=== PATIENT | female | born 1940 | race Caucasian/White ===

== ENCOUNTER → 2022-04-13 11:04 | Outpatient (CLI) | payer MEDICARE, SELFPAY ==
--- NOTE | 2022-04-13 11:07 | DI.RAD.S_ITS ---
PROCEDURE: XR LUMBAR SPINE 2-3V INDICATIONS: Low back pain TECHNIQUE: 3 views of the lumbar spine were acquired. COMPARISON: None. FINDINGS: Bones: 5 [id number] vertebrae are present. There is normal bony alignment. No vertebral body compression fractures. No suspicious bony lesions. Multilevel disc space narrowing and degenerative endplate changes are seen. There is multilevel facet hypertrophy, predominantly from L3-4 through L5-S1. Soft tissues: Overlying bowel gas pattern is normal. No suspicious soft tissue calcifications. Aortic atherosclerotic calcifications. IMPRESSION: [id number] spondylosis. No acute osseous abnormality. If the symptoms persist, consider cross sectional imaging such as MRI or CT for further assessment. Dictated by: Luke Blandon M.D. on 04/13/2022 at 10:42 Approved by: Luke Blandon M.D. on 04/13/2022 at 10:43
== END ==
PROVIDERS: Referring Provider Nurse Practitioner Family; Visit Provider Nurse Practitioner Family
DX: M54.50 Low back pain, unspecified (principal); M47.816 Spondylosis without myelopathy or radiculopathy, lumbar region
CPT/HCPCS: 72100

== ENCOUNTER → 2022-04-30 12:30 | Outpatient (CLI) | payer MEDICARE, SELFPAY ==
--- NOTE | 2022-04-30 | DI.MG.S_ITS ---
BILATERAL DIGITAL SCREENING MAMMOGRAM 3D/2D WITH CAD: 04/30/2022 CLINICAL: Routine screening. Chelsey by default. No prior exams were available for comparison. Both breasts are heterogeneously dense, which may obscure small masses (category c / 51-75% glandular tissue). Current study was also evaluated with a Computer Aided Detection (CAD) system. No significant masses, calcifications, or other findings are seen in either breast. IMPRESSION: NEGATIVE There is no mammographic evidence of malignancy. A 1 year screening mammogram is recommended. Based on the Tyrer Cuzick model (a risk assessment model) the patient's lifetime risk is 2.5% and her 10 year risk is 0.0%. According to the ACR, ACS, and NCCN guidelines, an annual breast MRI exam along with mammogram is recommended if the patient's lifetime risk is 20% or greater. This exam was interpreted at Station ID: [id number]. NOTE: For mammograms, a report in lay terms will be sent to the patient. Approximately 15% of breast malignancies will not be visualized mammographically. In the management of a palpable breast mass, a negative mammogram must not discourage biopsy of a clinically suspicious lesion. Electronically Signed By: Terrell sánchez/amy:04/30/2022 14:31:20 letter sent: Normal Exam ACR BI-RADS Category 1: Negative 3341F
== END ==
PROVIDERS: PCP Family Medicine; Referring Provider Family Medicine; Visit Provider Family Medicine
DX: Z12.31 Encounter for screening mammogram for malignant neoplasm of breast (principal)
CPT/HCPCS: 77063; 77067

== ENCOUNTER 2022-05-29 10:43 | Outpatient (RCR) | payer MEDICARE, SELFPAY ==
--- NOTE | 2022-05-29 12:02 | PT.OIE ---
Current Diagnoses Sciatica, left side (05/29/22) Visit Care Team Role Provider Type Other Providers Specialty: Address: Phone: Fax: Email: Layo Vargas MD Family Provider Non-Staff Primary Care Provider Specialty: Family Practice Address: [facility], [address] [place] [address], [address] Email: JAQUI Arellano Attending Provider Physician Referring Provider Specialty: [facility] Address: [address] [facility], [facility] [place], [address] Phone: Fax: Email: [email or web address] Physical Therapy Initial Evaluation PT-OP-A Visit Information Start: 05/29/22 11:50 Freq: Status: Active Protocol: Document 05/29/22 11:15 DCW (Rec: 05/29/22 11:52 DC [id number]) Out-Patient Physical Therapy Visit Information Visit Information Visit Type Initial Evaluation Visit Start Time 11:15 Visit Stop Time 11:45 Total Visit Minutes 30 Visit Number 1 Number of STAFF RESEARCH SCIENTIST Visits 0 Evaluation Information Evaluation Date 05/29/22 PT-OP-B Current Condition Start: 05/29/22 11:50 Freq: Status: Active Protocol: Document 05/29/22 11:15 DCW (Rec: 05/29/22 11:58 DCW [id number]) Current Condition History of Current Condition Onset Date ~2 month history Current Complaints None History of Current Condition Pt is a 81 year old female presenting two months s/p lumbar strain. Pt notes she feels pretty much normal now , but admits she struggled to walk for about a month after her injury due to sciatic pain . Reports she had been out pulling weeds and felt something go in her back. Experienced severe low back and leg pain afterward. Was unable to get relief with anything, but did notice a gradual improvement. Today no longer really experiencing any symptoms, but interested in learning more about what may have happened and if there is anything she could do if it happens again. PT-OP-C Subjective Start: 05/29/22 11:50 Freq: Status: Active Protocol: Document 05/29/22 11:15 DCW (Rec: 05/29/22 11:52 DCW [id number]) OP-PT Subjective Patient Comments Patient Comments I thought about canceling this appointment, since I'm feeling so much better, but I figured it would be worth coming in and just talking over some things with you. Patient Reported Progress Improving OP-PT Pain Assessment Pain Assessment Grid Paper Pain Assessment Grid Completed Yes Location Left Leg Intensity 4 Scale Used Numeric (0 - 10) PT-OP-F Manual Assessment Start: 05/29/22 11:50 Freq: Status: Active Protocol: Document 05/29/22 11:15 DCW (Rec: 05/29/22 11:56 DCW [id number]) Manual Assessments Soft Tissue Assessment Soft Tissue Mobility Assessment Mild-moderate tone and tenderness to palpation /: Complaint of pain along left piriformis. No other tenderness noted along low back or hips. PT-OP-K Range of Motion Start: 05/29/22 11:50 Freq: Status: Active Protocol: Document 05/29/22 11:15 DCW (Rec: 05/29/22 11:56 DCW [id number]) Lumbar Spine Range of Motion Lumbar Spine Active Testing Position Standing Comments Pt demonstrates WNL pain-free lumbar ROM, able to bend forward and touch the floor, arch back with no difficulty. PT-OP-L Special Tests Start: 05/29/22 11:50 Freq: Status: Active Protocol: Document 05/29/22 11:15 DCW (Rec: 05/29/22 11:56 DCW [id number]) Special Tests Lumbar Spine Special Tests Vertical Spine Loading Test Results Negative Standing Flexion Test Results Negative Prone Instability Test Test Results Negative Compression Test Results Negative A-P Shearing Test Results Negative PT-OP-M Strength Start: 05/29/22 11:50 Freq: Status: Active Protocol: Document 05/29/22 11:15 DCW (Rec: 05/29/22 11:56 DCW [id number]) Hip Strength Hip Manual Muscle Testing Bilateral Flexion (L2) 4+ Good+ Abduction 4+ Good+ Adduction 4+ Good+ External Rotation 4+ Good+ Internal Rotation 4+ Good+ Knee Strength Knee Manual Muscle Testing Bilateral Flexion (S2) 4+ Good+ Extension (L3) 4+ Good+ PT-OP-Q Treatments Start: 05/29/22 11:50 Freq: Status: Active Protocol: Document 05/29/22 11:15 DCW (Rec: 05/29/22 11:56 DCW [id number]) Therapeutic Exercises Supine Exercises Piriformis Stretch Supine Exercise Name Knee to opposite shoulder, Figure-4 Side left Sidelying Exercises Clamshell Sidelying Exercise Name Clamshell Side left Resistance Lv 3 Sitting Exercises Piriformis stretch Sitting Exercise Name Seated Figure-4 Side left PT-OP-T Assessment and Plan Start: 05/29/22 11:50 Freq: Status: Active Protocol: Document 05/29/22 11:15 DCW (Rec: 05/29/22 12:02 DCW [id number]) Physical Therapy Assessment Rehab Potential Rehabilitation Potential Excellent Evaluation Complexity Number of Personal Factors/Comorbidities 0 Number of Body Systems Impaired 1-2 Clinical Presentation at Evaluation Stable Assessment Summary Assessment Pt evaluation largely unremarkable, lumbar ROM, special testing, and LE strength all very good for pt' s age, no concerns regarding anything. Did have some lingering tone/tenderness along left piriformis following lumbar straining two months ago. Therapist and patient both felt that pt would probably not benefit from any further skilled therapy, but pt was very receptive to further information about trying to stretch out and strengthen piriformis to improve current lingering tightness, as well as potentially how to help improve speed of improvement if this type of thing happen again. Pt tolerated education very well, was given HEP handout, and felt she did not require any further instruction. Pt will be discharged from skilled therapy at this time, and will require a new referral in order to return to PT if needed. Physical Therapy Plan Frequency and Duration Frequency of Treatment 1x/Week Plan of Care Start Date 05/29/22 Plan of Care End Date 05/30/22 Discharge Physical Therapy Discharge Reasons No Longer Attending PT Next Visit Focus/Plan Next Note Type Discharge Summary
--- NOTE | 2022-05-29 12:03 | PT.OPPOC ---
Physical, Occupational & Speech Therapy At Current Diagnoses Sciatica, left side (05/29/22) Visit Care Team Role Provider Type Other Providers Specialty: Address: Phone: Fax: Email: Layo Vargas MD Family Provider Non-Staff Primary Care Provider Specialty: Family Practice Address: [address], [address] Email: JAQUI Arellano Attending Provider Physician Referring Provider Specialty: [facility] Address: [address] [facility], [address], [place], [address] Phone: Fax: Email: [email or web address] Plan Of Care PT-OP-T Assessment and Plan Start: 05/29/22 11:50 Freq: Status: Active Protocol: Document 05/29/22 11:15 DCW (Rec: 05/29/22 12:02 DCW [id number]) Physical Therapy Assessment Rehab Potential Rehabilitation Potential Excellent Evaluation Complexity Number of Personal Factors/Comorbidities 0 Number of Body Systems Impaired 1-2 Clinical Presentation at Evaluation Stable Assessment Summary Assessment Pt evaluation largely unremarkable, lumbar ROM, special testing, and LE strength all very good for pt' s age, no concerns regarding anything. Did have some lingering tone/tenderness along left piriformis following lumbar straining two months ago. Therapist and patient both felt that pt would probably not benefit from any further skilled therapy, but pt was very receptive to further information about trying to stretch out and strengthen piriformis to improve current lingering tightness, as well as potentially how to help improve speed of improvement if this type of thing happen again. Pt tolerated education very well, was given HEP handout, and felt she did not require any further instruction. Pt will be discharged from skilled therapy at this time, and will require a new referral in order to return to PT if needed. Physical Therapy Plan Frequency and Duration Frequency of Treatment 1x/Week Plan of Care Start Date 05/29/22 Plan of Care End Date 05/30/22 Discharge Physical Therapy Discharge Reasons No Longer Attending PT Next Visit Focus/Plan Next Note Type Discharge Summary Plan of Care Dates Plan of Care Start Date 05/29/22 Plan of Care End Date 05/30/22 Electronically Signed by: Oscar Soria, PT 05/29/22 [id number] If you are in agreement with this Plan of Care, please return a signed and dated copy. I have reviewed this Plan of Care and certify that the skilled therapy services above are required to meet the patient?s needs. Physician Signature Date Printed Name and Credentials Clinical Instructor Signature Printed Name and Credentials
== END 2022-05-30 15:27 | disposition home or self-care (01) ==
LOC: PHYS 10:43
PROVIDERS: Family Provider Family Medicine; PCP Family Medicine; Referring Provider Nurse Practitioner Family; Visit Provider Nurse Practitioner Family
DX: M54.32 Sciatica, left side (principal)
CPT/HCPCS: 97161

== ENCOUNTER → 2023-04-16 14:12 | Outpatient (CLI) | payer MEDICARE, SELFPAY ==
[2023-04-16 15:29] LABS: Add Manual Diff / Slide Review NO; Basophils Absolute Auto 100 /uL (0-100); Basophils Percent Auto 1.2 % (0-2); Eosinophils Absolute Auto 300 /uL (0-450); Eosinophils Percent Auto 4.2 % (2-4); Hematocrit 33.3 % (36-46); Hemoglobin 10.7 g/dL (12.0-16.0); Lymphocytes Absolute Auto 2900 /uL (1100-4500); Lymphocytes Percent Auto 36.1 % (25-40); Mean Corpuscular Hemoglobin 19.8 PG (26-34); Mean Corpuscular Volume 61.7 fL (80-100); Monocytes Absolute Auto 600 /uL (0-900); Monocytes Percent Auto 7.2 % (3-14); Neutrophils Absolute Auto 4200 /uL (1500-7000); Neutrophils Percent Auto 51.3 % (50-75); Platelet Count 236 X10^3/uL (150-400); Red Blood Cell Count 5.39 X10^6/uL (4.0-5.2); Red Cell Distribution Width 16.2 % (11.6-14.8); White Blood Cell Count 8.1 X10^3/uL (4.5-11.0)
[2023-04-16 15:40] LABS: Anisocytosis 1+
[2023-04-16 15:41] LABS: Ovalocytes 1+; Schistocytes 1+
[2023-04-16 15:43] LABS: Hypochromasia 1+
[2023-04-16 15:54] LABS: Alanine Aminotransferase 15 IU/L (<35); Albumin 4.2 g/dL (3.5-5.0); Albumin Globulin Ratio 1.3 (1.0-2.8); Alkaline Phosphatase 66 U/L (38-126); Aspartate Aminotransferase 23 IU/L (14-36); BUN Creatinine Ratio 24.7 (6-22); Bilirubin Total 0.3 mg/dL (0.2-1.3); Blood Urea Nitrogen 18 mg/dL (7-17); Calcium 9.6 mg/dL (8.4-10.2); Carbon Dioxide 28 mmol/L (22-32); Chloride 102 mmol/L (98-107); Estimated Glomerular Filt Rate > 60 mL/min (>60); Globulin 3.2 g/dL (1.7-4.1); Glucose 119 mg/dL (80-110); HEMOLYSIS < 15 (0-50); Iron 68 ug/dL (37-170); Potassium 3.8 mmol/L (3.4-5.1); Sodium 140 mmol/L (137-145); Total Protein 7.4 g/dL (6.3-8.2)
[2023-04-16 16:02] LABS: Percent Iron Saturation 21 % (15-50); Total Iron Binding Capacity 328 ug/dL (265-497); Transferrin 251 mg/dL (206-381)
[2023-04-16 16:21] LABS: TSH w/ Reflex to FT4 1.54 uIU/mL (0.47-4.68)
[2023-04-16 16:45] LABS: Vitamin B12 840 pg/mL (239-931)
== END ==
PROVIDERS: Family Provider Family Medicine; PCP Family Medicine; Referring Provider Family Medicine; Visit Provider Family Medicine
DX: M54.41 Lumbago with sciatica, right side (principal); G89.29 Other chronic pain; L57.0 Actinic keratosis; Z00.00 Encounter for general adult medical examination without abnormal findings
CPT/HCPCS: 36415; 80053; 82607; 83540; 83550; 84443; 85025

== ENCOUNTER → 2023-07-21 09:50 | Outpatient (CLI) | payer MEDICARE, SELFPAY ==
--- NOTE | 2023-07-21 | DI.MG.S_ITS ---
BILATERAL DIGITAL SCREENING MAMMOGRAM 3D/2D WITH CAD: 07/21/2023 CLINICAL: Routine screening. Comparison is made to exam dated: 04/30/2022 mammogram - [facility]. Both breasts are heterogeneously dense, which may obscure small masses (category c / 51-75% glandular tissue). Current study was also evaluated with a Computer Aided Detection (CAD) system. No significant masses, calcifications, or other findings are seen in either breast. There has been no significant interval change. IMPRESSION: NEGATIVE There is no mammographic evidence of malignancy. A 1 year screening mammogram is recommended. Based on the Tyrer Cuzick model (a risk assessment model) the patient's lifetime risk is 2.3% and her 10 year risk is 0.0%. According to the ACR, ACS, and NCCN guidelines, an annual breast MRI exam along with mammogram is recommended if the patient's lifetime risk is 20% or greater. This exam was interpreted at Station ID: [id number]. NOTE: For mammograms, a report in lay terms will be sent to the patient. Approximately 15% of breast malignancies will not be visualized mammographically. In the management of a palpable breast mass, a negative mammogram must not discourage biopsy of a clinically suspicious lesion. Electronically Signed By: Jayda alves/amy:07/21/2023 15:22:32 letter sent: Normal Exam ACR BI-RADS Category 1: Negative 3341F
== END ==
PROVIDERS: Family Provider Family Medicine; PCP Family Medicine; Referring Provider Family Medicine; Visit Provider Family Medicine
DX: Z12.31 Encounter for screening mammogram for malignant neoplasm of breast (principal)
CPT/HCPCS: 77063; 77067

== ENCOUNTER → 2024-05-04 15:46 | Outpatient (CLI) | payer MEDICARE, SELFPAY ==
--- NOTE | 2024-05-04 15:47 | DI.RAD.S_ITS ---
PROCEDURE: XR FOOT RT MIN 3V INDICATIONS: R foot pain TECHNIQUE: 3 views of the foot were acquired. COMPARISON: None. FINDINGS: Bones: There are no osseous abnormalities other than os naviculare . Joints: Severe 1st MTP and moderate degenerative change in all interphalangeal joints appreciated. Soft tissues: No soft tissue abnormality. IMPRESSION: Degeneration Dictated by: Arias Doyle M.D. on 05/05/2024 at 10:37 Approved by: Arias Doyle M.D. on 05/05/2024 at 10:39
== END ==
LOC: RAD 15:47
PROVIDERS: Family Provider Family Medicine; PCP Family Medicine; Referring Provider Family Medicine; Visit Provider Family Medicine
DX: M79.671 Pain in right foot (principal)
CPT/HCPCS: 73630